=== PATIENT | male | born 1970 | race Caucasian/White ===

== ENCOUNTER 2020-10-08 08:43 | Observation (INO) ==
--- NOTE | 2020-09-03 16:23 | PAT Medication Instructions ---
Medication Instructions Date of Service September 03, 2020 Home Medications losartan 100 mg tablet 50 mg PO QAM oxycodone-acetaminophen 2.5 mg-300 mg tablet 1 tab PO Q8H PRN pantoprazole 40 mg tablet,delayed release 40 mg PO BID cholecalciferol (vitamin D3) [Vitamin D3] 125 mcg PO QAM ferrous gluconate [Ferate] 256 mg PO QAM fexofenadine [Osiris] 180 mg PO QAM gabapentin 600 mg PO QID hydrochlorothiazide 12.5 mg PO QAM multivitamin 1 tab PO QAM potassium 99 mg PO QAM cyanocobalamin (vitamin B-12) 1,000 mcg SUBCUT MONTHLY fluticasone propionate [Flonase Allergy Relief] 2 spray INTRANASAL HS PRN Continue as directed cyanocobalamin (vitamin B-12) 1,000 mcg SUBCUT MONTHLY DO NOT take the morning of surgery losartan 100 mg tablet 50 mg PO QAM cholecalciferol (vitamin D3) [Vitamin D3] 125 mcg PO QAM ferrous gluconate [Ferate] 256 mg PO QAM fexofenadine [Osiris] 180 mg PO QAM hydrochlorothiazide 12.5 mg PO QAM multivitamin 1 tab PO QAM potassium 99 mg PO QAM Take morning of surgery With a small sip of water, OTHERWISE NOTHING TO EAT OR DRINK AFTER MIDNIGHT: oxycodone-acetaminophen 2.5 mg-300 mg tablet 1 tab PO Q8H PRN (if needed, may be taken up to four hours before surgery) pantoprazole 40 mg tablet,delayed release 40 mg PO BID gabapentin 600 mg PO QID Take evening before surgery oxycodone-acetaminophen 2.5 mg-300 mg tablet 1 tab PO Q8H PRN (if needed) pantoprazole 40 mg tablet,delayed release 40 mg PO BID gabapentin 600 mg PO QID fluticasone propionate [Flonase Allergy Relief] 2 spray INTRANASAL HS PRN (if needed) Other Notes If you have any questions please call us at [phone] or [phone] or [phone] or [phone]
--- NOTE | 2020-09-07 10:49 | Anesthesiology Consultation ---
Date of Service September 07, 2020 Assessment & Plan (1) Encounter for pre-operative examination: COVID Status: As of 09/07 assessment, patient denies travel to endemic area, known exposure/sick contacts, or symptoms of COVID19. Patient instructed that they and their household members must follow strict social distancing guidelines, wear a mask in public and avoid travel/events/gatherings for 14 days prior to surgery. Preoperative COVID19 testing to be completed prior to surgery per surgeon's arrangements (10/04). Patient made aware to self-isolate as much as possible between COVID testing and surgery. Due to prior ischemia on stress test and poor functional status/exertional tolerance, will arrange cardio clearance. Patient was previously seen by cardio in early 2019 but was lost to f/u. Chart Review Chart Review: Acceptable Risk for Surgery (pending PCP clearance and cardio clearance to be arranged) and Patient seen in Pre Admission Testing Teaching & Discussion Instructed NPO after midnight before surgery, except medications with 15 cc of water. Medication instructions provided according to the PAT guidelines. History Surgery Operation Date: 10/08/20 10:00 Proposed Procedures p Right Total Shoulder Arthroplasty versus - Reno Bowden DO s Reverse Right Total Shoulder Arthroplasty - Reno Bowden DO Height/Weight Height: 5 ft 7 in Weight: 140.3 kg Allergies Allergy/AdvReac Type Severity Reaction Status Date / Time amoxicillin [From Augmentin] Allergy Unknown FACE Verified 09/01/20 09:52 SWELLING clavulanic acid Allergy Unknown FACE Verified 09/01/20 09:52 [From Augmentin] SWELLING NSAIDS (Non-Steroidal AdvReac Unknown HX GASTRIC Verified 09/01/20 09:57 Anti-Inflamma BYPASS/HX GASTRIC ULCER REPAIR CEFALEXIN Allergy Unknown FACIAL Uncoded 09/01/20 10:27 SWELLING Medications Home Medications Medication Instructions Recorded Confirmed Last Taken losartan 100 mg tablet 50 mg PO QAM 06/30/20 09/07/20 Unknown oxycodone-acetaminophen 2.5 mg-300 1 tab PO Q8H PRN 06/30/20 09/01/20 Unknown mg tablet pantoprazole 40 mg tablet,delayed 40 mg PO BID 06/30/20 09/07/20 Unknown release cholecalciferol (vitamin D3) 125 mcg PO QAM 07/12/20 09/07/20 Unknown [Vitamin D3] ferrous gluconate [Ferate] 256 mg PO QAM 07/12/20 09/07/20 Unknown fexofenadine [Osiris] 180 mg PO QAM 07/12/20 09/07/20 Unknown gabapentin 600 mg PO QID 07/12/20 09/07/20 Unknown hydrochlorothiazide 12.5 mg PO QAM 07/12/20 09/07/20 Unknown multivitamin 1 tab PO QAM 07/12/20 09/07/20 Unknown potassium 99 mg PO QAM 07/12/20 09/07/20 Unknown cyanocobalamin (vitamin B-12) 1,000 mcg SUBCUT MONTHLY 09/01/20 09/07/20 Unknown fluticasone propionate [Flonase 2 spray INTRANASAL HS PRN 09/01/20 09/07/20 Unknown Allergy Relief] clindamycin HCl 300 mg capsule 600 mg PO ONCE PRN cap 09/07/20 09/07/20 Unknown Past Medical History Medical History Abdominal hernia Arthritis Chronic back pain on gabapentin Degenerative disc disease GERD (gastroesophageal reflux disease) Hypertension Morbid obesity Paralysis, diaphragm Left sided > follows with lung specialist, feel possibly 2/2 viral pneumonia in the past. Sleep apnea BIPAP Exercise / Class Metabolic Activity III < 4 Walking/Shop/Light housework (Denies CP or SOB with ambulation) Past Family History Family History Mother Family history of diabetes mellitus Family hx of colon cancer Father Family history of diabetes mellitus Grandmother (Maternal) Family history of diabetes mellitus Grandfather (Paternal) Family hx of colon cancer Other No family history of adverse response to anesthesia Past Surgical History Surgical History Abdominal wall ulcer Repair (2015) H/O exploratory laparotomy Pt reports perforated ulcer after gastric bypass that required abdominal wall repair. Reports being on ventilator after this surgery. H/O gastric bypass 2003 H/O hernia repair History of cholecystectomy History of colonoscopy History of esophagogastroduodenoscopy (EGD) [place] teeth removed Past Anesthesia History No Hx of Anesthesia Complications and No Family Hx of Anesthesia Complications History of PONV No Hx of PONV and No Hx of Motion Sickness Social History Smoking Status: Former smoker tobacco type: cigarettes Do You Dip or Chew Tobacco: No Smoking End Date: QUIT AGE 22 Hx Alcohol Use: No Hx Substance Use: No Review of Systems Pt denies any recent chest pain, shortness of breath, palpitations, cough, fever, URI. +acid reflux Physical Exam Vital Signs BP: 126/84 P: 73bpm SPO2: 98% RA T: 98.2 F R: 18 Constitutional + morbidly obese ENMT Mouth: + dental restorations (crowns on upper incisors); no chipped teeth and no loose teeth Thyromental Distance: > or= 3.5 Finger Breadths Mallampati Class: III Neck + thick neck and + facial hair (medium length oneill); neck extension not limited Respiratory normal respiratory effort, lungs clear to auscultation Cardiovascular Rate/Rhythm: regular rate and regular rhythm Heart Sounds: no murmur Extremities: + edema (B/L pedal edema, wearing compression stockings) Gastrointestinal (Abdomen) Inspection/Auscultation: + visible herniation (very large irregular protrusion from epigastric region); + abdomen abnormal to inspection Testing Laboratory Results 09/07/20 11:00 09/07/20 11:00 PT 10.0 Seconds (9.0-12.0) 09/07/20 11:00 INR 1.0 (0.9-1.1) 09/07/20 11:00 APTT 25.9 Seconds (21.0-31.0) 09/07/20 11:00 Blood Type AB Positive 09/07/20 11:00 Antibody Screen NEGATIVE 09/07/20 11:00 Electrocardiogram Date: 09/07/20 Findings: + NSR @ (69bpm) Chest X-Ray Date: 09/07/20 Findings: + NAD Echocardiogram Date: 04/04/19 EF: 50-55% Technically difficult study. LV has low normal systolic function. Normal RV size. The right atrium is mildly enlarged. Normal diastolic function. Microb ubble contrast with Definity was administered for LV opacification. IVC appears dilated measuring 2.4 cm, greater than 50% respiratory variation noted. Stress Test Date: 04/04/19 There is a regadenoson-induced perfusion abnormality in the basal to mid inferior and inferoseptal campos, consistent with ischemia. There is a resting perfusion abnormality in the basal inferior wall, consistent with prior infarction. The LV is mildly dilated in size. The LV EF is 38%. This is an abnormal regadenoson SPECT myocardial perfusion study, indicating that the probability of underlying coronary artery disease being present is high. The sum difference score is 13% suggesting a moderate area of ischemia. Overall, the findings are consistent with a prior inferior wall infarction with a moderate burden of jillian-infarction ischemia.
[2020-09-07 11:21] LABS: Basophils # (auto) 0.04 K/uL (0-0.2); Basophils % (auto) 0.6 %; Eosinophils # (auto) 0.35 K/uL (0-0.5); Eosinophils % (auto) 4.9 %; Hematocrit (blood only) 40.5 % (42-52); Hemoglobin 13.3 g/dL (14.0-18.0); Immature Granulocytes # (auto) 0.01 K/uL (0.00-0.02); Immature Granulocytes % (auto) 0.1 %; Lymphocytes # (auto) 1.94 K/uL (1.2-3.4); Lymphocytes % (auto) 26.9 %; Mean Corpuscular Hemoglobin 30.2 pg (25-34); Mean Corpuscular Hgb Conc 32.8 g/dL (32-36); Mean Platelet Volume 8.9 fL (7.4-10.4); Monocytes % (auto) 8.3 %; Neutrophils # (auto) 4.27 K/uL (1.4-6.5); Neutrophils % (auto) 59.2 %; Platelet Count 280 K/uL (130-400); RDW Coefficient of Variation 13.1 % (11.5-14.5); White Blood Count 7.21 K/uL (4.8-10.8)
--- NOTE | 2020-09-07 11:24 | XRay Report ---
XR chest Pre-admission PA/Lat CLINICAL HISTORY: Preoperative chest COMPARISON STUDY: No previous studies for comparison. FINDINGS: The heart is normal in size. There is no failure. There is no focal pulmonary consolidation . There are no pleural effusions. There is minor left midlung zone atelectasis/scarring.[ IMPRESSION: No active disease in the chest. ACT 112: Negative or not required by law. Electronically signed by: Aren Lang M.D. 09/07/2020 11:23 AM
[2020-09-07 11:37] LABS: Partial Thromboplastin Time 25.9 Seconds (21.0-31.0)
[2020-09-07 13:42] LABS: BUN Creatinine Ratio 16.1 (10-20); Calcium 9.5 mg/dl (8.5-10.1); Creatinine Clr Calc Pharmacy 216.2 ml/min; Est GFR (African American) 140.8; Est GFR (Non-African American) 121.5; Potassium 3.9 mmol/L (3.5-5.1)
--- NOTE | 2020-09-07 14:56 | Electrocardiogram Report ---
Test Reason : Blood Pressure : / mmHG Vent. Rate : 069 BPM Atrial Rate : 069 BPM P-R Int : 176 ms QRS Dur : 100 ms QT Int : 414 ms P-R-T Axes : 077 055 044 degrees QTc Int : 443 ms Normal sinus rhythm Normal ECG No previous ECGs available Confirmed by Nacho Gamble ([id number]) on 09/07/2020 2:56:00 PM Referred By: Reno Bowden Confirmed By:Jay Gamble
--- NOTE | 2020-10-07 12:56 | History & Physical Report ---
Date of Service October 07, 2020 Assessment & Plan (1) Osteoarthritis of right shoulder: We will proceed with a right total shoulder arthroplasty. Postoperatively he will be placed in a sling and kept overnight in the hospital for postoperative medical management. He plans to go to [facility] for physical therapy postoperatively. History of Present Illness Chief Complaint: Advanced osteoarthritis of the right shoulder. Primary Care Provider: NO PCP Jack is a pleasant 50-year-old male who is been doing with chronic increasing right shoulder pain. X-rays and clinical examination have been diagnostic for advanced osteoarthritis of the right shoulder. I have an MRI which shows an intact rotator cuff. After failing conservative treatment, he has elected proceed with a right total shoulder arthroplasty versus reverse shoulder replacement surgery.. Allergies Allergy/AdvReac Type Severity Reaction Status Date / Time amoxicillin [From Augmentin] Allergy Intermediate FACE Verified 10/05/20 09:58 SWELLING cephalexin Allergy Intermediate FACIAL Verified 10/05/20 09:58 SWELLING clavulanic acid Allergy Intermediate FACE Verified 10/05/20 09:58 [From Augmentin] SWELLING NSAIDS (Non-Steroidal AdvReac Mild HX GASTRIC Verified 10/05/20 09:58 Anti-Inflamma BYPASS/HX GASTRIC ULCER REPAIR Home Medications Medication Instructions Recorded Confirmed Type losartan 100 mg tablet 50 mg PO QAM 06/30/20 09/07/20 History oxycodone-acetaminophen 2.5 mg-300 1 tab PO Q8H PRN 06/30/20 09/01/20 History mg tablet pantoprazole 40 mg tablet,delayed 40 mg PO BID 06/30/20 09/07/20 History release cholecalciferol (vitamin D3) 125 mcg PO QAM 07/12/20 09/07/20 History [Vitamin D3] ferrous gluconate [Ferate] 256 mg PO QAM 07/12/20 09/07/20 History fexofenadine [Osiris] 180 mg PO QAM 07/12/20 09/07/20 History gabapentin 600 mg PO QID 07/12/20 09/07/20 History hydrochlorothiazide 12.5 mg PO QAM 07/12/20 09/07/20 History multivitamin 1 tab PO QAM 07/12/20 09/07/20 History potassium 99 mg PO QAM 07/12/20 09/07/20 History cyanocobalamin (vitamin B-12) 1,000 mcg SUBCUT MONTHLY 09/01/20 09/07/20 History fluticasone propionate [Flonase 2 spray INTRANASAL HS PRN 09/01/20 09/07/20 History Allergy Relief] clindamycin HCl 300 mg capsule 600 mg PO ONCE PRN cap 09/07/20 09/07/20 History Past Med/Surg History Medical History Abdominal hernia Arthritis Chronic back pain on gabapentin Degenerative disc disease GERD (gastroesophageal reflux disease) Hypertension Morbid obesity Paralysis, diaphragm Left sided > follows with lung specialist, feel possibly 2/2 viral pneumonia in the past. Sleep apnea BIPAP Surgical History Abdominal wall ulcer Repair (2015) H/O exploratory laparotomy Pt reports perforated ulcer after gastric bypass that required abdominal wall repair. Reports being on ventilator after this surgery. H/O gastric bypass 2003 H/O hernia repair History of cholecystectomy History of colonoscopy History of esophagogastroduodenoscopy (EGD) [place] teeth removed Family History Mother Family history of diabetes mellitus Family hx of colon cancer Father Family history of diabetes mellitus Grandmother (Maternal) Family history of diabetes mellitus Grandfather (Paternal) Family hx of colon cancer Other No family history of adverse response to anesthesia Social History Smoking Status: Former smoker Second Hand Exposure: No; Hx Alcohol Use: No Hx Substance Use: No Preferred Language: Citizen Of [place] Communication Ability: Effective 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 Physical Exam On physical examination of the right shoulder, he has about 90 degrees forward elevation 90 degrees of abduction. He has 5 out of 5 motor strength with full can testing and external rotation. He has a negative belly press test.. Constitutional WD/WN, vitals as above Eyes PERRL, conjunctivae normal, anicteric sclerae ENMT external ear and nose normal, oropharynx normal Neck trachea midline, no thyromegaly Respiratory normal respiratory effort Cardiovascular RRR, no murmur, no edema Gastrointestinal (Abdomen) normal bowel sounds, soft, nontender, no hepatosplenomegaly Psychiatric A+Ox3, euthymic affect Results & Data Results & Data Laboratory Results . Diagnostic Findings X-rays and MRI of the right shoulder do show advanced osteoarthritis with joint space narrowing osteophyte formation and [id number] articulation. PG Care Time/CCT Total # of Minutes Spent Total Time Spent with Patient: Total time spent is greater than 50% in coordination of care (as documented) at patient's floor/unit and/or counseling patient: Coding Level of Care Code None Diagnoses Osteoarthritis of right shoulder M19.011
[~2020-10-08 08:43] MED LIST: ACETAMINOPHEN 500 MG TAB PO SCH; BUPIVACAINE 0.5 % 5 MG/1 ML PF 10ML VIAL ONE; FAMOTIDINE 20 MG TAB PO SCH; GABAPENTIN 900 MG DOSE PO SCH; LR 15ML/HR IV SCH; LR 60ML/HR IV SCH; ROPIVACAINE 0.5% HCL/PF 150 MG, BUPIVACAINE 0.75% MPF 20 ML, EPINEPHrine 30MG/30ML (OR ... INFIL SCH; TRANEXAMIC ACID 1,000 MG **IV Pre-op IV SCH; dexAMETHasone 4 MG TAB PO SCH
[2020-10-08] MEDS ORDERED: PROPOFOL IV EMULSION 10 MG/ML 100 ML VIAL IV ONE ×2 (09:21→09:38)
[2020-10-08] MEDS ORDERED: LIDOCAINE 2% 2 ML VIAL/AMP(20MG/ML) INFIL ONE (09:21)
[2020-10-08] MEDS ORDERED: fentaNYL citrate 100 MCG/2 ML VIAL ONE (09:22)
[2020-10-08] MEDS ORDERED: MIDAZOLAM HCL 1 MG/ML 2ML VIAL ONE ×2 (09:22→09:23)
--- NOTE | 2020-10-08 09:57 | History & Physical Bridge Note ---
Date of Service October 08, 2020 History & Physical Bridge Note I have examined the patient, reviewed the History & Physical and in the interval since the performance of the History & Physical I have noted the following changes of clinical significance: no changes noted
[2020-10-08] MEDS ORDERED: VANCOMYCIN CONSULT ACTIVE PRN ×2 (10:05→15:02)
[2020-10-08] MEDS ORDERED: VANCOMYCIN HCL 1 GM/270 ML BAG ONE (10:07)
[2020-10-08] MEDS ORDERED: ORTHO JOINT ANESTHETIC ONE (10:25)
[2020-10-08] MEDS ORDERED: SUCCINYLCHOLINE 100MG/5ML SYR IV ONE (10:32)
[2020-10-08] MEDS ORDERED: ONDANSETRON INJ 2 MG/ML 2 ML VIAL ONE (10:32)
[2020-10-08] MEDS ORDERED: ROCURONIUM BROMIDE 10 MG/ML 5 ML VIAL IV ONE (10:32)
[2020-10-08] MEDS ORDERED: DEXAMETHASONE SOD INJ 4 MG/ML VIAL ONE ×2 (10:32→11:57)
[2020-10-08] MEDS ORDERED: MEPERIDINE HCL 25 MG/ML CARP/VIAL IV PRN ×2 (10:41→11:00)
[2020-10-08] MEDS ORDERED: HYDROmorphone INJ 2 MG/ML SYR/VIAL IV PRN (10:41)
[2020-10-08] MEDS ORDERED: ONDANSETRON INJ 2 MG/ML 2 ML VIAL IV PRN ×2 (11:00→15:02)
[2020-10-08] MEDS ORDERED: ePHEDrine sulfate 50 MG/ML AMP IV PRN (11:00)
[2020-10-08] MEDS ORDERED: ATROPINE SULFATE 0.1 MG/ML 10ML SYR IV PRN (11:00)
[2020-10-08] MEDS ORDERED: KETAMINE 50 MG/5 ML SYRINGE ONE (11:12)
[2020-10-08] MEDS ORDERED: HYDROmorphone INJ 1 MG/ML SYRINGE ONE (12:34)
[2020-10-08] MEDS ORDERED: NEOSTIGMINE METHYLSULFATE 5 MG/5 ML SYR ONE (12:45)
[2020-10-08] MEDS ORDERED: GLYCOPYRROLATE 0.2 MG/ML VIAL ONE ×2 (12:45)
--- NOTE | 2020-10-08 13:02 | Operative Report ---
PG Post Operative Report Pre & Post Diagnosis Operation Date: 10/08/20 11:30 Pre-Op Diagnosis: Osteoarthritis of Right Shoulder with tendinopathy of the long head of the biceps tendon Post-Op Diagnosis: Osteoarthritis of Right Shoulder with tendinopathy of the long head of biceps tendon I identified the patient and participated in the time-out.: Yes Procedure Operation Date: 10/08/20 11:30 Actual Procedures p Reverse Right Total Shoulder Arthroplasty(Right) with open biceps tenodesis as a distinct and separate procedure (modifier 59)- Reno Bowden DO Surgeon Reno Bowden DO Measurement Analyst Alirio Guadalupe PAC Estimated Blood Loss 200 Findings Consistent with Post-Op Diagnosis Specimens None Complications none Disposition Disposition: Recovery Room Indications Jack is a pleasant 50-year-old male who presented my office with severe osteoarthritis of the right shoulder. X-rays showed deformity of the humeral head and significant posterior glenoid wear. CT scanning of the shoulder showed greater than 25 degrees of retroversion. After failing conservative treatment, he elected proceed with a reverse right shoulder arthroplasty. Description of Procedure A CPT code modifier 59: The long head of the biceps tendon was enlarged and inflamed consistent with tendinopathy. A tenodesis was opted. This was a separate and distinct portion of the procedure. For these reasons, a CPT code modifier 59 will be added to this case. Implants used: I used a [employer] Comprehensive reverse total shoulder arthroplasty system with a size 14 press fit micro humeral stem, a standard humeral tray and a standard humeral bearing, a 25 mm large augment baseplate with a 6.5 mm central screw and superior and inferior locking screws, and a size 40 mm eccentric glenosphere. Jack arrived at [facility] for the above procedure. He was seen in the preoperative holding area and the operative extremity was identified and signed. He was given a preoperative antibiotic, TXA, and an interscalene nerve block. He was taken back to the operating room, laid on table in supine position, and put under general anesthesia. He was then put into the beachchair position. The shoulder was then prepped and draped in sterile fashion. A timeout was done and the patient and the operative extremity was properly identified. A deltopectoral approach was used. Dissection was taken down through the fascia and the deltoid was retracted laterally and the conjoined tendon was retracted medially. The anterior shoulder was exposed. The biceps groove was opened up a nd the biceps tendon was examined extensively. The biceps tendon demonstrated enlargement and inflammatory changes consistent with longstanding inflammation in the context of osteoarthritis and cuff arthropathy. The long head of the biceps tendon was then tenodesed to the upper border of the pectoralis major. This was a separate and distinct portion of the procedure. The subscapularis was then directly released off the lesser tuberosity with a peel technique. The inferior capsule was released and the humeral head was dislocated. A canal finding reamer was sent down the center of the humeral canal. Sequential reaming up to a size 14 reamer was done. Off that reamer, a proximal humeral resection guide was placed. The proximal humerus was resected at 135 of inclination and 25 of retroversion. Osteophytes were then removed and the glenoid was exposed. Time was spent doing a complete capsular and labral release. A [employer] Signature One guide was then attached onto the anterior rim of the glenoid. A 3.2 mm Steinmann pin was then placed in the reverse total shoulder arthroplasty hole. The glenoid baseplate was then reamed. The final size 25 mm large augment baseplate was then impacted in the place. A 6.5 mm central screw was then placed followed by superior and inferior locking screws. A 40 mm eccentric glenosphere was then impacted into place. Surrounding soft tissues were then injected with 100 cc an orthopedic pain control cocktail. The proximal humerus was then exposed. Sequential broaching of the humerus up to a size 14 broach was done. Off that broach a standard humeral tray was trialed. The shoulder was then reduced, brought through a full range of motion, and felt to be stable. The shoulder was then dislocated and the broach was removed. The final size 14 micro press-fit humeral stem was then impacted into place. A standard humeral bearing was then snapped onto a standard humeral tray. The humeral tray was then impacted onto the humeral stem. The shoulder was once again reduced, brought through a full range of motion, and felt to be stable. The subscapularis was then tenodesed back to the lesser tuberosity with transosseous FiberWire sutures and side to side sutures with the arm in 45 of external rotation. A dilute betadyne lavage was then done for 3 minutes. The joint was then irrigated with normal saline solution. Hemostasis was obtained. The interval was closed with 2-0 Vicryl suture. The skin was then closed with 2-0 Vicryl and nyla. A Silverlon dressing was placed and the arm was rested in a regular arm sling. He was then extubated and transferred to a hospital bed. He taken to the postanesthesia care unit in stable condition. He tolerated the procedure well. Alirio Guadalupe PA-C, was present for the entire procedure. He was critical for patient positioning, prepping, draping, retraction exposure, wound closure and application of sterile dressing. I attest to the content of the Intraoperative Record and any orders documented therein. Any exceptions are noted below.
[2020-10-08] MEDS: fentaNYL citrate 100 MCG/2 ML VIAL IV PRN ×2 (13:35→13:43)
[2020-10-08] MEDS: HYDROmorphone INJ 2 MG/ML SYR/VIAL IV PRN ×2 (13:55→14:02)
--- NOTE | 2020-10-08 14:25 | XRay Report ---
XR shoulder RT min 2V routine CLINICAL HISTORY: Post shoulder surgery COMPARISON STUDY: None. FINDINGS: Status post reverse right total shoulder arthroplasty. The hardware is intact. No fracture or dislocation. Skin nyla are in place. IMPRESSION: Status post reverse right total shoulder arthroplasty. No evidence for hardware complica tion. ACT 112: Negative or not required by law. Electronically signed by: David Lopes M.D. 10/08/2020 2:24 PM
[2020-10-08] MEDS ORDERED: bisacodyL 10 MG SUPP PR PRN (15:02)
[2020-10-08] MEDS ORDERED: MAGNESIUM HYDROXIDE SUSP 30 ML UDC PO PRN (15:02)
[2020-10-08] MEDS ORDERED: METOCLOPRAMIDE HCL INJ 5 MG/ML 2 ML VIAL IV PRN (15:02)
[2020-10-08] MEDS ORDERED: NALOXONE HCL 0.4 MG/1 ML VIAL/CARP IV PRN (15:02)
[2020-10-08] MEDS ORDERED: HYDROmorphone INJ 0.5 MG/0.5 ML SYR IV PRN (15:02)
--- NOTE | 2020-10-08 15:12 | Anesthesiology Progress Note ---
Date of Service October 08, 2020 Anesthesia Post Procedure Vital Signs Vital Signs: Temp Pulse Pulse Resp BP Pulse Ox 10/08/20 14:35 69 14 134/68 95 10/08/20 14:25 75 16 137/71 95 10/08/20 14:15 68 14 133/76 94 10/08/20 14:05 75 15 143/70 H 93 10/08/20 13:55 79 14 145/82 H 98 10/08/20 13:45 65 16 140/75 99 10/08/20 13:35 80 18 151/72 H 100 10/08/20 13:27 36.4 C L 88 16 155/82 H 97 10/08/20 09:10 36.7 C 73 18 126/70 99 Pain Intensity Right Shoulder: Pain Intensity: 4 Transfer of Care Handoff Completed per policy Notes Mental Status: alert / awake / arousable and participated in evaluation Patient Amnestic to Procedure: Yes Nausea / Vomiting: adequately controlled Pain: adequately controlled Airway Patency, RR, SpO2: stable & adequate BP & HR: stable & adequate Hydration State: stable & adequate Anesthetic Complications: no major complications apparent and Pt Satisfied with anesthetic care
[2020-10-08] MEDS: SODIUM CHLORIDE 0.9% 1000ML 1,000 ML IV SCH (15:55)
[2020-10-08] MEDS: KETOROLAC 30 MG/ML VIAL IV SCH ×2 (16:01→21:37)
[2020-10-08] MEDS: GABAPENTIN 600 MG TAB PO SCH ×2 (16:56→21:37)
[2020-10-08] MEDS: oxyCODONE HCL IR 5 MG TAB (IMMEDIATE RELEASE) PO PRN (20:04)
[2020-10-08] MEDS ORDERED: SENNA 8.6 MG TAB PO SCH (21:00)
[2020-10-08] MEDS: DOCUSATE SODIUM 100 MG CAP PO SCH (21:36)
[2020-10-08] MEDS: PANTOprazole 40 MG TAB PO SCH (21:37)
[2020-10-08] MEDS ORDERED: VANCOMYCIN HCL 2,000 MG in SODIUM CHLORIDE 0.9% 500 ML IV SCH (22:00)
[2020-10-09] MEDS: SODIUM CHLORIDE 0.9% 1000ML 1,000 ML IV SCH (02:13)
[2020-10-09] MEDS: KETOROLAC 30 MG/ML VIAL IV SCH ×2 (03:10→10:13)
[2020-10-09] MEDS: oxyCODONE HCL IR 5 MG TAB (IMMEDIATE RELEASE) PO PRN (05:26)
[2020-10-09] MEDS ORDERED: VANCOMYCIN HCL 1,000 MG/270 ML BAG IV SCH (06:00)
--- NOTE | 2020-10-09 07:17 | Orthopedic Progress Note ---
Date of Service October 09, 2020 Assessment & Plan (1) Status post reverse total replacement of right shoulder: Overall is doing well. Is not in too much pain in the right shoulder. He will be seen by physical therapy today for ambulation and range of motion exercises. He is a pain management contract so we will not be sending him home with any pain medications. He can be discharged home later today. He will follow-up with orthopedics in 2 weeks. Subjective Jack was seen and examined at bedside this morning. Overall he is doing very well. He has some soreness in the shoulder but is not too bad. He was able to get some sleep last night. He has no complaints.. Review of Systems All systems reviewed & are unremarkable except as noted in HPI & below. Physical Exam On physical examination of the right shoulder, the dressing is clean and dry. His radial, median, and ulnar nerves are checked intact at his wrist. His axillary nerve was not checked yet. He is wearing his sling as instructed.. Results & Data Results & Data Laboratory Results . Diagnostic Findings Postoperative x-rays of the right shoulder show the prosthesis to be in anatomic alignment without any evidence of fracture, dislocation, or loosening. PG Care Time/CCT Total # of Minutes Spent Total Time Spent with Patient: Total time spent is greater than 50% in coordination of care (as documented) at patient's floor/unit and/or counseling patient: Coding Level of Care Code 88167 Post Operative Follow-Up Diagnoses Status post reverse total replacement of right shoulder Z96.611
--- NOTE | 2020-10-09 07:18 | Discharge Summary ---
Date of Service October 09, 2020 Admission HPI (Per Admitting) Jack is a pleasant 50-year-old male who is been doing with chronic increasing right shoulder pain. X-rays and clinical examination have been diagnostic for advanced osteoarthritis of the right shoulder. I have an MRI which shows an intact rotator cuff. After failing conservative treatment, he has elected proceed with a right total shoulder arthroplasty versus reverse shoulder replacement surgery.. Admission Exam (Per Admitting) On physical examination of the right shoulder, he has about 90 degrees forward elevation 90 degrees of abduction. He has 5 out of 5 motor strength with full can testing and external rotation. He has a negative belly press test.. Principal Diagnosis Same as "Discharge Diagnosis" noted below under Discharge Instructions. Discharge Exam On physical examination of the right shoulder, the dressing is clean and dry. His radial, median, and ulnar nerves are checked intact at his wrist. His axillary nerve was not checked yet. He is wearing his sling as instructed.. Discharge Data Procedures Performed Operation Date: 10/08/20 11:30 Actual Procedures p Reverse Right Total Shoulder Arthroplasty(Right) - Reno Bowden DO Ordered Studies 10/08/20 05:00 US - OR guided needle placemen Routine Hospital Course (1) Status post reverse total replacement of right shoulder: On October 08, 2020 Jack arrived at [facility] and underwent a right reverse shoulder arthroplasty without complication. He had a general anesthetic and a right interscalene nerve block. Postoperatively he was placed in a sling and transferred to the general orthopedic floors. His hospital course was uneventful. On postop day #1 his H&H was stable and his pain was well controlled. He was able to participate well with physical therapy doing ambulation and range of motion exercises. He was then discharged home. He will follow-up with orthopedics in 2 weeks. PG Care Time/CCT Total # of Minutes Spent Total Time Spent with Patient: Total time spent is greater than 50% in coordination of care (as documented) at patient's floor/unit and/or counseling patient: Discharge Plan Discharge Items Patient Disposition: Home - Home Health Services Reason For Visit: Degenerative Joint Disease Right Shoulder Discharge Diagnosis: Right reverse shoulder replacement Activity: As commented below Non-emergency contact: Surgeon Call non-emergency contact if: your wound has increased redness and your wound has increased drainage Follow-up/Referrals: PCP,NO [Primary Care Provider] - Diet: Regular Addtl Attending Provider Instructions: Activity and Therapy Recommendations: * If you are using [facility] then therapy will be provided at your home until they feel you have accomplished all of your goals. * If you are using [facility] then Physical Therapy will be provided until they feel you are ready to start Outpatient Physical Therapy. * If you are not using home therapy then Outpatient Physical Therapy should start about 3-5 days from your day of surgery. Therapy will last about 8-12 weeks * Wear your sling for 3 weeks, unless otherwise instructed. You may remove your sling to shower and to dress, but otherwise, you should be in your sling at all times, including while sleeping * The shoulder replacement is very stable and you can use your hand while in the sling * You were shown a series of exercises in the hospital. Do these exercises daily including the exercises you were shown in physical therapy. Medications: * Narcotic You will likely be sent home from the hospital with a prescription for the narcotic pain medication that worked best throughout your stay. * Other medications may be prescribed for specific circumstances. If you have any questions, please call the office at . * Resume previous home medications unless otherwise instructed Dressing Care: Leave the Silverlon dressing in place for 7 days. After 7 days you may remove the dressing. If the incision is not draining then you may leave the nyla open to air. If there is a little bit of drainage or if the nyla are getting stuck on your clothing then cover the incision with a dry dressing. The nyla will be removed at your 2 week follow-up appointment. Showering: You may shower with the Silverlon dressing in place. Do not let the shower spray hit the dressing directly. Pat the Silverlon dressing dry. If the dressing becomes wet underneath, then simply remove the dressing. Keep the incision dry until you are 7 days out from the day of surgery. After 7 days you may remove the Silverlon dressing and shower with the nyla exposed. Let soapy water run over the nyla and pat them dry. Do not scrub or soak the incision. Things To Watch For: * Drainage from the incision site that occurs more than one week after your surgery. * Increased redness at the incision site. * Fever above 102 degrees Fahrenheit. * Unusual chest pain or shortness of breath. * Call [facility] at with any of the above problems Follow-Up Visit: Follow-up with Dr. Bowden's PA (Reno Alejo) 2-3 weeks after your day of surgery. He will remove your nyla and answer any questions. If you have any additional questions or concerns, Dr Bowden is usually in the office at the same time and will be available An appointment was probably scheduled when you signed-up for surgery in the office. If you have any questions call More detailed instructions as well as Frequently Asked Questions were provided in a folder by our office when you signed-up for surgery. Please review these instructions when you get home. If you have any further questions or concerns, please feel free to call the office at [phone] Pending Studies at Discharge: No Stand-Alone Forms: [facility], Smoking Cessation Medications and DC Order Prescriptions: Continued oxycodone-acetaminophen 2.5-300 mg tablet 1 tab PO Q8H PRN (Reason: Pain) RF: 0 losartan [Cozaar] 100 mg tablet 50 mg PO QAM RF: 0 pantoprazole [Protonix] 40 mg tablet,delayed release (DR/EC) 40 mg PO BID RF: 0 clindamycin HCl 300 mg capsule 600 mg PO ONCE PRN (Reason: Prophylaxis) RF: 0 multivitamin Tablet 1 tab PO QAM RF: 0 gabapentin 600 mg Tablet 600 mg PO QID RF: 0 fexofenadine [Osiris] 180 mg Tablet 180 mg PO QAM RF: 0 potassium 99 mg Tablet 99 mg PO QAM RF: 0 hydrochlorothiazide 12.5 mg Tablet 12.5 mg PO QAM RF: 0 cholecalciferol (vitamin D3) [Vitamin D3] 125 mcg (5,000 unit) Tablet 125 mcg PO QAM RF: 0 ferrous gluconate [Ferate] 256 mg (28 mg iron) Tablet 256 mg PO QAM RF: 0 fluticasone propionate [Flonase Allergy Relief] 50 mcg/actuation [place],Suspension 2 spray INTRANASAL HS PRN (Reason: Allergy Symptoms) RF: 0 cyanocobalamin (vitamin B-12) 1,000 mcg/mL Solution 1,000 mcg SUBCUT MONTHLY RF: 0 Discharge Orders: Discharge Order (Routine); Ordered 10/09/20 Ordered By: Reno Bowden Admission Data Admit Date/Time: 10/08/20 13:05 Attending Provider: Reno Bowden Admit Provider: Reno Bowden Primary Care Provider: PCP,WANG
[2020-10-09] MEDS ORDERED: dexAMETHasone 4 MG TAB PO SCH (08:00)
[2020-10-09] MEDS ORDERED: LOSARTAN POTASSIUM 50 MG TAB PO SCH (09:00)
[2020-10-09] MEDS ORDERED: CHOLECALCIFEROL 1,000 UNITS 25 MCG TAB PO SCH (09:00)
[2020-10-09] MEDS ORDERED: FERROUS GLUCONATE 324 MG TAB PO SCH (09:00)
[2020-10-09] MEDS ORDERED: hydroCHLOROthiazide 25 MG TAB PO SCH (09:00)
[2020-10-09] MEDS ORDERED: MULTIVITAMIN TAB PO SCH ×2 (09:00)
[2020-10-09] MEDS ORDERED: NON-FORMULARY MEDICATION (Potassium 99 mg Tablet) PO SCH (09:00)
[2020-10-09] MEDS ORDERED: FEXOFENADINE HCL 180 MG TAB PO SCH (09:00)
[2020-10-09] MEDS: DOCUSATE SODIUM 100 MG CAP PO SCH (09:03)
[2020-10-09] MEDS: GABAPENTIN 600 MG TAB PO SCH (09:05)
[2020-10-09] MEDS: PANTOprazole 40 MG TAB PO SCH (09:05)
--- NOTE | 2020-10-09 10:33 | Anesthesiology Progress Note ---
Date of Service October 09, 2020 Anesthesia Post Procedure Vital Signs Vital Signs: Temp Pulse Pulse Resp BP Pulse Ox 10/09/20 08:58 88 133/79 10/09/20 07:34 36.5 C 78 16 116/75 98 10/09/20 03:20 36.6 C 65 18 121/75 98 10/08/20 22:36 37.2 C 73 18 127/75 97 10/08/20 19:47 37.4 C 99 H 18 143/81 H 97 10/08/20 17:32 98 H 16 142/81 H 95 10/08/20 16:50 37.1 C 84 16 137/77 96 10/08/20 15:50 37.0 C 77 16 133/73 95 10/08/20 15:20 74 16 130/74 97 10/08/20 14:50 36.9 C 82 16 135/76 97 10/08/20 14:35 69 14 134/68 95 10/08/20 14:25 75 16 137/71 95 10/08/20 14:15 68 14 133/76 94 10/08/20 14:05 75 15 143/70 H 93 10/08/20 13:55 79 14 145/82 H 98 10/08/20 13:45 65 16 140/75 99 10/08/20 13:35 80 18 151/72 H 100 10/08/20 13:27 36.4 C L 88 16 155/82 H 97 Pain Intensity Right Shoulder: Pain Intensity: 6 Transfer of Care Handoff Completed per policy Notes Mental Status: alert / awake / arousable and participated in evaluation Patient Amnestic to Procedure: Yes Nausea / Vomiting: adequately controlled Pain: adequately controlled Airway Patency, RR, SpO2: stable & adequate BP & HR: stable & adequate Hydration State: stable & adequate Anesthetic Complications: no major complications apparent and Pt Satisfied with anesthetic care
== END 2020-10-09 12:56 | disposition home health service (06) ==
LOC: ASU 08:43 → INTOOBSV 13:05 → 3E 13:05